=== PATIENT | male | born 1980 | race Caucasian/White ===

== ENCOUNTER → 2017-10-19 | Outpatient (CLI) | payer BC ==
[~2017-10-19] MED LIST: ACET500T68 PO; AMLO-99 PO; ASP325 PO; ATEN-1 PO; ATOR10TA65 PO; AZIT-17 PO; BENZ100C4 PO; CEPH-13 PO; DIA5 PO; HCTZ25 PO; HYDR-2966 PO; HYDR-4309 PO; IBU600 PO; IBU800 PO; INDO-1 PO; LEVO-85 PO; LISI-353 PO; LOR5 PO; LOR5/325 PO; MELO-207 PO; METO25TA23 PO; METR-160 PO; NAPR-723 PO; NAPR500T75 PO; NO; ONDA8TAB94 PO; OXYC-856 PO; OXYC-865 PO; PENI-22 PO; PER PO; PRAV20TA65 PO; ROSU5TAB8 PO; SIM10 PO; TRA50 PO; bp med
[2017-10-19 10:12] LABS: PLATELET COUNT, AUTOMATED 250 K/uL (150-450)
[2017-10-19 10:21] LABS: LDL CHOLESTEROL 78 mg/dl
== END ==
LOC: LAB 09:54
PROVIDERS: ATTEND Internal Medicine
DX: R79.89 Other specified abnormal findings of blood chemistry (principal); E78.5 Hyperlipidemia, unspecified; I10 Essential (primary) hypertension; R79.9 Abnormal finding of blood chemistry, unspecified
CPT/HCPCS: 36415; 81001; 82040; 82247; 82310; 82374; 82435; 82465; 82565; 82947; 83036; 83718; 84075; 84132; 84155; 84295; 84443; 84450; 84460; 84478; 84520; 85025

== ENCOUNTER → 2017-11-26 | Outpatient (REF) | LOC: AUD 09:00 | PROVIDERS: ATTEND Internal Medicine | DX: Z01.10 Encounter for examination of ears and hearing without abnormal findings (principal) | CPT/HCPCS: 92552 ==

== ENCOUNTER 2018-04-26 14:03 | Emergency (ER) | payer BC ==
[~2018-04-26 14:03] MED LIST changes: +AMLO-113 PO; -AMLO-99 PO; -HYDR-4309 PO; +HYDR-653 PO; -INDO-1 PO; +INDO-21 PO; -METR-160 PO; +METR500T54 PO
[2018-04-26 15:20] VITALS: BP 153/100
--- NOTE | 2018-04-26 16:24 | RADIOLOGY IMAGING REPORT ---
[place] [facility] [place] Reina Rios : 1980 MR: [id number] V: [id number] EXAM DATE: ORDERING PHYSICIAN: LOGAN MISHRA TECHNOLOGIST: Location: [facility] Patient: Reina Rios : 1980 Visit/Account:[id number] Date of Sevice: 04/26/2018 KNEE 3 VIEW LEFT HISTORY: KNEE PAIN AND SWELLING THREE-VIEW EXAMINATION LEFT KNEE. COMPARISON MADE TO PREVIOUS STUDY OF 04/07/2012 FINDINGS: No acute bony pathology. The distal left femur and proximal tibia/fibular well-maintained. Suprapat ellar joint effusion similar to the previous examination. IMPRESSION: 1. No acute bony pathology. Suprapatellar joint effusion. Joint effusion seen on the previous plai n film from 2011 Report Dictated By: Jose Maher MD at 04/26/2018 4:09 PM Report E-Signed By: Jose Maher MD at 04/26/2018 4:21 PM [id number]
--- NOTE | 2018-04-26 18:30 | ER Report ---
History and Physical Time Seen By MD: 15:19 Hx. of Stated Complaint: LEFT KNEE PAIN AND SWELLING FOR A FEW DAYS HPI/ROS See Dr. Donahue's note Allergies: Uncoded Allergies: LATEX POWDER (Allergy, Intermediate, REDNESS ITCHING OF HANDS WITH GLOVE USE, 06/12/09) Home Meds Active Scripts Indomethacin (INDOMETHACIN) 25 Mg Capsule, 25 MG PO DIRECTED, #28 CAPSULE 0 Refills Take 2 tablets 3 times a day for 3 days, then decrease to 1 tablet 3 times a day for 3 more days, then stop. Prov:ANANT MOY MD 04/26/18 Metoprolol Succinate (METOPROLOL SUCCINATE) 25 Mg Tab.er.24h, 1 TAB PO QDAY, #90 TAB 3 Refills Prov:EDWIN RODRIGUEZ MD 10/26/17 Amlodipine Besylate (AMLODIPINE BESYLATE) 10 Mg Tablet, 1 TAB PO QDAY, #90 TAB 3 Refills Prov:EDWIN RODRIGUEZ MD 10/26/17 Lisinopril/Hydrochlorothiazide (LISINOPRIL-HCTZ 20-12.5 MG TAB) 1 Each Tablet, 1 EACH PO BID, #180 TAB 3 Refills Prov:EDWIN RODRIGUEZ MD 10/26/17 Rosuvastatin Calcium (CRESTOR) 5 Mg Tablet, 5 MG PO QDAY, #90 TAB 3 Refills Prov:EDWIN RODRIGUEZ MD 10/09/17 Hx Smoking: Yes (1 ppd) Smoking Status: Current: Every Day Smoker, Former Smoker Hx Substance Use Disorder: No Hx Alcohol Use: Yes (RARE) Constitutional Vital Sign - Last 24 Hours 04/26/18 04/26/18 04/26/18 14:41 15:19 15:20 Temp 97.1 97.1 99.1 Pulse 101 101 93 Resp 18 18 20 B/P (MAP) 147/81 147/81 153/100 (117) Pulse Ox 95 [address] Donahue's note Medical Decision Making Data Points Laboratory Hematology Test 04/26/18 17:45 Body Fluid Type left knee Body Fluid WBC 94269 Body Fluid RBC 2476 Body Fluid Neutrophils 89 % Body Fluid Lymphocytes 5 % Body Fluid Monocytes 6 % Body Fluid Eosinophils 0 % Body Fluid Basophils 0 % Body Fluid Crystals Present Body Fluid Glucose 124 mg/dl Chemistry Test 04/26/18 17:45 Body Fluid Type left knee Body Fluid WBC 68139 Body Fluid RBC 2476 Body Fluid Neutrophils 89 % Body Fluid Lymphocytes 5 % Body Fluid Monocytes 6 % Body Fluid Eosinophils 0 % Body Fluid Basophils 0 % Body Fluid Crystals Present Body Fluid Glucose 124 mg/dl Microbiology Microbiology Date/Time Source Procedure Growth Status 04/26/18 17:45 Synovial Fluid Knee Gram Stain - Final Resulted 04/26/18 17:45 Synovial Fluid Knee Body Fluid Culture - Preliminary NO GROWTH AFTER 1 DAY, REINCUBATED Resulted 04/26/18 17:45 Synovial Fluid Knee Anaerobic Culture Pending Resulted ED Course/Re-evaluation ED Course I assumed care of this patient at shift change from Dr. Donahue. Patient with effusion of the left knee that was drained, straw colored with mild cloudiness. His pain is better. No pain with axial load. No warmth or redness. No fever or chills. Appears likely inflammatory. Labs obtained. Gram stain is negative. 56thousand white cells on microscopic, but with uric acid crystals on fluid eval. Discussed with ortho, question regarding the white count. This is felt typical for gouty arthropathy. treated with Indomethacin. Decision to Disposition Date: Apr 26, 2018 Decision to Disposition Time: 19:30 Depart Departure Latest Vital Signs Vital Signs Date Time Temp Pulse Resp B/P (MAP) Pulse Ox O2 Delivery O2 Flow Rate FiO2 04/26/18 15:20 99.1 93 20 153/100 (117) 94 Impression: Primary Impression: Gout attack Additional Impression: Knee effusion, left Condition: Improved Disposition: HOME OR SELF-CARE Referrals: EDWIN RODRIGUEZ MD (PCP) New Scripts Indomethacin (INDOMETHACIN) 25 Mg Capsule 25 MG PO DIRECTED, #28 CAPSULE 0 Refills Take 2 tablets 3 times a day for 3 days, then decrease to 1 tablet 3 times a day for 3 more days, then stop. Prov: ANANT MOY MD 04/26/18 Patient Instructions: Gout (ED) Additional Instructions: Follow-up with Dr. Rodriguez for further evaluation. Take Indomethacin 25mg tablets. Take 2 tablets three times a day for 3 days, then decrease to one tablet 3 times a day for 3 more days, then stop. Problem Qualifiers Primary Impression: Gout attack Gout site: knee Gout etiology: unspecified cause Laterality: left Qualified Codes: M10.9 - Gout, unspecified ANANT MOY MD Apr 26, 2018 18:29
[2018-04-26] MEDS ORDERED: INDO-21 PO (19:32)
[2018-04-26] MEDS ORDERED: INDOMETHACIN 25 MG CAP PO ONE (19:35)
== END 2018-04-26 20:15 | disposition home or self-care (01) ==
LOC: ER 14:38
DX: M10.9 Gout, unspecified (principal); M25.462 Effusion, left knee
CPT/HCPCS: 82945; 87071; 87073; 87205; 89050; 89060; 99283

== ENCOUNTER 2018-05-23 08:01 | Emergency (ER) | payer BC ==
[~2018-05-23 08:01] MED LIST changes: +HYDR-4309 PO; -HYDR-653 PO; +METR-160 PO; -METR500T54 PO
--- NOTE | 2018-05-23 08:10 | ER Report ---
History and Physical Time Seen By MD: 08:10 Hx. of Stated Complaint: PATIENT TRIPPED OVER HIS DOG AND TWISTED HIS LEFT KNEE HPI/ROS CHIEF COMPLAINT: knee injury HISTORY OF PRESENT ILLNESS: This is a 37 year old male. He tripped over the dogs this morning. Unsure of exact mechanism, but twisted the left knee. Now with pain in posterior knee, and to a lesser extent in the lateral part as well. Hurts worse with movement, severe. Seems okay if just lying still. Normal sensation in lower leg and foot. Allergies: Uncoded Allergies: LATEX POWDER (Allergy, Intermediate, REDNESS ITCHING OF HANDS WITH GLOVE USE, 06/12/09) Home Meds Active Scripts Hydrocodone Bit/Acetaminophen (HYDROCODON-ACETAMINOPHEN 5-325) 1 Each Tablet, 1 EACH PO Q4H PRN for PAIN, #8 TAB 0 Refills Prov:ANANT MOY MD 05/23/18 Indomethacin (INDOMETHACIN) 25 Mg Capsule, 25 MG PO DIRECTED, #28 CAPSULE 0 Refills Take 2 tablets 3 times a day for 3 days, then decrease to 1 tablet 3 times a day for 3 more days, then stop. Prov:ANANT MOY MD 04/26/18 Metoprolol Succinate (METOPROLOL SUCCINATE) 25 Mg Tab.er.24h, 1 TAB PO QDAY, #90 TAB 3 Refills Prov:EDWIN RODRIGUEZ MD 10/26/17 Amlodipine Besylate (AMLODIPINE BESYLATE) 10 Mg Tablet, 1 TAB PO QDAY, #90 TAB 3 Refills Prov:EDWIN RODRIGUEZ MD 10/26/17 Lisinopril/Hydrochlorothiazide (LISINOPRIL-HCTZ 20-12.5 MG TAB) 1 Each Tablet, 1 EACH PO BID, #180 TAB 3 Refills Prov:EDWIN RODRIGUEZ MD 10/26/17 Rosuvastatin Calcium (CRESTOR) 5 Mg Tablet, 5 MG PO QDAY, #90 TAB 3 Refills Prov:EDWIN RODRIGUEZ MD 10/09/17 Reviewed Nurses Notes: Yes Hx Smoking: Yes (1 ppd) Smoking Status: Current: Every Day Smoker, Former Smoker Hx Substance Use Disorder: No Hx Alcohol Use: Yes (RARE) Constitutional Vital Sign - Last 24 Hours 05/23/18 05/23/18 08:05 09:33 Temp 99.1 Pulse 89 89 Resp 24 20 B/P (MAP) 178/111 174/121 (138) Pulse Ox 95 94 O2 Delivery Room Air Physical Exam General: Alert, mild distress due to pain. Musculoskeletal: Pain in posterior knee, worse with movement, active worse, but also with passive. No pain in patella or anterior knee. Normal quads. Normal calf, some pain in hamstrings and tendons, seems worse lateral and midline. Pain mild over lateral jointline. No pain over medial jointline. Negative mary kay and medial and lateral stresses, but with significant guarding, so poor exam. Skin: no bruising or skin breakdown. Neuro: Normal sensation. Cardiovascular: Normal cap refill and pulses. Medical Decision Making EKG/Imaging Imaging KNEE 4 VIEW LEFT HISTORY: Fall. Knee injury. COMPARISON: X-ray 04/26/2018 FINDINGS: Left knee: No acute fracture or dislocation. No significant degenerative changes. No evidence of AVN. Small joint effusion. No loose body. Mild lateral patellar subluxation. IMPRESSION: 1. No acute osseous abnormality. 2. Small joint effusion. Report Dictated By: Evgeny Truong MD at 05/23/2018 8:54 AM ED Course/Re-evaluation ED Course Knee still painful. X-ray shows no fracture but does show small effusion. Knee immobilizer and crutches applied. Give the patient dose of ibuprofen and her milligrams and Lortab 5/325. Recommended follow-up with orthopedic surgery. Decision to Disposition Date: May 23, 2018 Decision to Disposition Time: 09:11 Depart Departure Latest Vital Signs Vital Signs Date Time Temp Pulse Resp B/P (MAP) Pulse Ox O2 Delivery O2 Flow Rate FiO2 05/23/18 09:33 89 20 174/121 (138) 94 05/23/18 08:05 99.1 Room Air Impression: Primary Impression: Knee effusion, left Additional Impression: Strain of left knee Condition: Improved Disposition: HOME OR SELF-CARE Referrals: EDWIN RODRIGUEZ MD (PCP) New Scripts Hydrocodone Bit/Acetaminophen (HYDROCODON-ACETAMINOPHEN 5-325) 1 Each Tablet 1 EACH PO Q4H PRN for PAIN, #8 TAB 0 Refills Prov: ANANT MOY MD 05/23/18 Patient Instructions: Ankle Strain (ED) Additional Instructions: Ibuprofen 200mg over the counter tablets, take 4 tablets three times a day with food. Lortab 5/325, one every 4 hours as needed for pain. Apply ice 20 minutes every 1-2 hours while awake. Knee immobilizer and crutches. Rest the injured area, keep it elevated while at rest. Call Thursday morning to [facility] to schedule follow-up Problem Qualifiers Additional Impression: Strain of left knee Encounter type: initial encounter Qualified Codes: S86.912A - Strain of unspecified muscle(s) and tendon(s) at lower leg level, left leg, initial encounter ANANT MOY MD May 23, 2018 08:10
--- NOTE | 2018-05-23 09:00 | RADIOLOGY IMAGING REPORT ---
[place] [facility] [place]IENT NAME: Reina Rios : 1980 MR: [id number] V: [id number] EXAM DATE: ORDERING PHYSICIAN: ANANT MOY TECHNOLOGIST: Location: [facility] Patient: Reina Rios : 1980 Visit/Account:[id number] Date of Sevice: 05/23/2018 KNEE 4 VIEW LEFT HISTORY: Fall. Knee injury. COMPARISON: X-ray 04/26/2018 FINDINGS: Left knee: No acute fracture or dislocation. No significant degenerative changes. No evidence of AVN. Small joint effusion. No loose body. Mild lateral patellar subluxation. IMPRESSION: 1. No acute osseous abnormality. 2. Small joint effusion. Report Dictated By: Evgeny Truong MD at 05/23/2018 8:54 AM Report E-Signed By: Evgeny Truong MD at 05/23/2018 8:56 AM WSN:[id number]
[2018-05-23] MEDS ORDERED: APAP/HYDROCODONE 325/5 TAB PO ONE (09:10)
[2018-05-23] MEDS ORDERED: IBUPROFEN 800 MG TAB PO ONE (09:10)
[2018-05-23] MEDS ORDERED: LOR5/325 PO (09:13)
[2018-05-23 09:33] VITALS: BP 174/121
== END 2018-05-23 09:35 | disposition home or self-care (01) ==
LOC: ER 08:22
DX: S86.812A Strain of other muscle(s) and tendon(s) at lower leg level, left leg, initial encounter (principal); M25.462 Effusion, left knee
CPT/HCPCS: 73564; 99283; L1830

== ENCOUNTER → 2018-11-23 | Outpatient (REF) ==
[~2018-11-23] MED LIST changes: -AMLO-113 PO; +AMLO-127 PO; -HYDR-4309 PO; +HYDR-653 PO; -METR-160 PO; +METR500T15 PO
== END ==
LOC: AUD 09:00
PROVIDERS: ATTEND Internal Medicine
DX: Z01.12 Encounter for hearing conservation and treatment (principal)
CPT/HCPCS: 92552